=== PATIENT | female | born 1960 | race Hispanic/Latino ===

== ENCOUNTER 2024-02-08 21:38 | Emergency (ER) | payer BC ==
[~2024-02-08] VITALS: Ht 152.4 cm; Wt 78.0 kg
[2024-02-08 22:08] LABS: APPEARANCE,URINE CLEAR (CLEAR); BILIRUBIN,URINE NEGATIVE (NEGATIVE); COLOR,URINE COLORLESS (YELLOW); GLUCOSE, URINE (UA) NEGATIVE (NEGATIVE); KETONES,URINE NEGATIVE (NEGATIVE); LEUKOCYTE ESTERASE ,URINE 25 Leu/uL (NEGATIVE); NITRATE,URINE NEGATIVE (NEGATIVE); OCCULT BLOOD,URINE NEGATIVE (NEGATIVE); PH,URINE 6.5 (5.0-8.0); PROTEIN,URINE NEGATIVE (NEGATIVE); UROBILINOGEN,URINE 0.2 mg/dL (0.2-1.0)
[2024-02-08 22:09] LABS: BASOPHILS # (AUTO) 0.07 K/uL (0.00-0.20); BASOPHILS % (AUTO) 0.8 % (0.0-5.0); EOSINOPHILS # (AUTO) 1.43 K/uL (0.00-0.70); EOSINOPHILS % (AUTO) 16.7 % (0.0-8.0); IMMATURE GRANULOCYTE ABSOLUTE 0.02 K/uL (0-1); LYMPHOCYTES # (AUTO) 2.5 K/uL (1.0-4.8); LYMPHOCYTES % (AUTO) 29.7 % (21.0-51.0); MEAN CORPUSCULAR HEMOGLOBIN 29.9 pg (27.0-33.0); MEAN CORPUSCULAR HGB CONC 34.1 g/dL (32.0-36.0); MEAN CORPUSCULAR VOLUME 87.6 fL (79-99); MONOCYTES # (AUTO) 0.5 K/uL (0.1-1.0); MONOCYTES % (AUTO) 6.2 % (3.0-13.0); NEUTROPHILS % (AUTO) 46.4 % (40.0-77.0); PLATELET COUNT (AUTO) 401 K/uL (130-400); RED BLOOD CELL COUNT(AUTO) 4.45 MIL/uL (4.00-5.50); RED CELL DISTRIBUTION WIDTH 11.8 % (11.0-15.5); WHITE BLOOD COUNT (AUTO) 8.6 K/uL (4.8-10.8)
[2024-02-08 22:11] LABS: ADD UA MICROSCOPIC YES
[2024-02-08 22:21] LABS: CREATININE 0.6 mg/dL (0.5-1.0); POTASSIUM 4.3 mmol/L (3.5-5.1)
[2024-02-08 22:26] LABS: ALBUMIN 3.8 g/dL (3.5-5.0); BILIRUBIN,TOTAL 0.5 mg/dL (0.2-1.0); TOTAL PROTEIN, SERUM 8.3 g/dL (6.0-8.3)
[2024-02-08 23:06] LABS: WBC MORPHOLOGY CONSISTENT W/DIFF
[2024-02-08] MEDS: MORPHINE 2 MG SYG IVP STA (23:24)
[2024-02-08] MEDS: ONDANSETRON 4MG INJ IVP STA (23:24)
[2024-02-08] MEDS: 0.9%NACL 1000ML 1,000 ML IV STA (23:24)
[2024-02-09] MEDS ORDERED: IOHEXOL-350 75 ML VIAL IV ONE (00:14)
[2024-02-09] MEDS ORDERED: ONDA-243 PO (01:03)
[2024-02-09] MEDS ORDERED: AMOX1TAB16 PO (01:03)
[2024-02-09 01:11] VITALS: BP 138/70; PULSE 72; RESP 19; O2SAT 98
== END 2024-02-09 01:16 | disposition home or self-care (01) ==
LOC: EDH 21:38
DX: K57.32 Diverticulitis of large intestine without perforation or abscess without bleeding (principal); Z79.899 Other long term (current) drug therapy
CPT/HCPCS: 99284; 74177; 96374; 71045; 84484; 80053; 83690; 85025; 81001; 36415; 93005; J7030; J2405; Q9967; J2270